=== PATIENT | female | born 1965 | race Caucasian/White ===

== ENCOUNTER 2017-05-02 23:24 | Emergency (ER) | payer SELFPAY ==
[~2017-05-02] VITALS: Ht 160 cm; Wt 54.4 kg
[2017-05-02] MEDS ORDERED: IV NORMAL SALINE 1000ML BAG 1,000 ML IV SCH (23:45)
--- NOTE | 2017-05-02 23:47 | PHYS DOC ---
Past Medical History Past Medical History: No Pertinent History Additional Past Medical Histor: pt denies Past Surgical History: Additional Past Surgical Histo: pt denies Smoking: Cigarettes Alcohol Use: Rarely Drug Use: None Adult General Chief Complaint Chief Complaint: DIZZY/LIGHT HEADED HPI HPI Patient is a 52 year old female who presents with vomiting, cough and dizziness. She is homeless and was eating tacos at 2230 PM. She states that she vomited "10 times." No blood in emesis. No diarrhea. She has a cough as well. She smokes tobacco. No chest pain. Review of Systems Review of Systems Constitutional: Denies fever or chills Eyes: Denies change in visual acuity, redness, or eye pain HENT: Denies nasal congestion or sore throat Respiratory: POS cough; no shortness of breath Cardiovascular: No chest pain GI: Denies abdominal pain, POS nausea, vomiting, No bloody stools or diarrhea 4 : Denies dysuria or hematuria Musculoskeletal: Denies back pain or joint pain Integument: Denies rash or skin lesions Neurologic: Denies headache, focal weakness or sensory changes Current Medications Current Medications Current Medications Medications (Trade) Dose Ordered Sig/[place] Start Time Stop Time Status Last Admin Dose Admin Ondansetron HCl (Zofran) 4 mg 1X ONCE 05/02/17 23:55 05/02/17 23:56 DC 05/03/17 01:58 4 MG Sodium Chloride 1,000 ml @ 1,000 mls/hr 1X ONCE 05/03/17 02:30 05/03/17 03:29 05/03/17 02:37 1,000 MLS/HR Allergies Allergies Allergies Coded Allergies Type Severity Reaction Last Updated Verified No Known Drug Allergies 05/02/17 No Physical Exam Physical Exam Constitutional: Well developed, well nourished, no acute distress, non-toxic appearance. HENT: Normocephalic, atraumatic, bilateral external ears normal, oropharynx moist, no oral exudates, nose normal. Eyes: PERRLA, EOMI, conjunctiva normal, no discharge. Neck: Normal range of motion, no tenderness, supple, no stridor. Cardiovascular:Heart rate regular rhythm, no murmur Lungs & Thorax: Bilateral breath sounds clear to auscultation; no rales. Abdomen: Bowel sounds normal, soft, no tenderness, no masses, no pulsatile masses. Skin: Warm, dry, no erythema, no rash. Back: No tenderness, no CVA tenderness. Extremities: No tenderness, no cyanosis, no clubbing, ROM intact, no edema. Neurologic: Alert and oriented X 3, normal motor function, normal sensory function, no focal deficits noted. Psychologic: Affect normal, judgement normal, mood normal. Current Patient Data Vital Signs Vital Signs Date Time Temp Pulse Resp B/P (MAP) Pulse Ox O2 Delivery O2 Flow Rate FiO2 05/03/17 02:00 92 19 114/58 (76) 05/02/17 23:27 98.1 96 Room Air 98.1 Lab Values Laboratory Tests Test 05/03/17 01:40 White Blood Count 11.1 x10^3/uL (4.0-11.0) H Red Blood Count 4.34 x10^6/uL (3.50-5.40) Hemoglobin 14.0 g/dL (12.0-15.5) Hematocrit 41.5 % (36.0-47.0) Mean Corpuscular Volume 96 fL (79-100) Mean Corpuscular Hemoglobin 32 pg (25-35) Mean Corpuscular Hemoglobin Concent 34 g/dL (31-37) Red Cell Distribution Width 13.7 % (11.5-14.5) Platelet Count 259 x10^3/uL (140-400) Neutrophils (%) (Auto) 81 % (31-73) H Lymphocytes (%) (Auto) 13 % (24-48) L Monocytes (%) (Auto) 5 % (0-9) Eosinophils (%) (Auto) 0 % (0-3) Basophils (%) (Auto) 1 % (0-3) Neutrophils # (Auto) 9.0 x10^3uL (1.8-7.7) H Lymphocytes # (Auto) 1.5 x10^3/uL (1.0-4.8) Monocytes # (Auto) 0.6 x10^3/uL (0.0-1.1) Eosinophils # (Auto) 0.0 x10^3/uL (0.0-0.7) Basophils # (Auto) 0.1 x10^3/uL (0.0-0.2) Prothrombin Time 14.6 SEC (11.7-14.0) H Prothrombin Time INR 1.2 (0.8-1.1) H D-Dimer (Cindy) < 0.27 ug/mlFEU Sodium Level 141 mmol/L (136-145) Potassium Level 4.5 mmol/L (3.5-5.1) Chloride Level 101 mmol/L (98-107) Carbon Dioxide Level 28 mmol/L (21-32) Anion Gap 12 (6-14) Blood Urea Nitrogen 22 mg/dL (7-20) H Creatinine 1.1 mg/dL (0.6-1.0) H Estimated GFR (Cockcroft-Gault) 51.8 Glucose Level 88 mg/dL (70-99) Calcium Level 9.8 mg/dL (8.5-10.1) Total Bilirubin 0.9 mg/dL (0.2-1.0) Direct Bilirubin 0.2 mg/dL (0.0-0.2) Aspartate Amino Transferase (AST) 15 U/L (15-37) Alanine Aminotransferase (ALT) 19 U/L (14-59) Alkaline Phosphatase 98 U/L (46-116) Creatine Kinase 64 U/L (26-192) Creatine Kinase MB (Mass) < 0.5 ng/mL (0.0-3.6) Creatine Kinase MB Relative Index 0.8 % (0-4) Troponin I Quantitative < 0.017 ng/mL (0.000-0.055) FZ-Bhu-S-Type Natriuretic Peptide 387 pg/mL (0-124) H Total Protein 7.4 g/dL (6.4-8.2) Albumin 4.4 g/dL (3.4-5.0) Lipase 103 U/L (73-393) Laboratory Tests 05/03/17 01:40 Laboratory Tests 05/03/17 01:40 EKG EKG EKG interpreted by myself at 2337 PM. Sinus tachycardia at a rate 100; non specific ST changes. Radiology/Procedures Radiology/Procedures Chest x-ray interpreted by myself at 0040 a.m. shows normal mediastinum, normal cardiac silhouette, flattened mohan with hyperinflated lung ambrose. No consolidation, no infiltrates. Course & Med Decision Making Course & Med Decision Making Evaluated patient upon arrival. IV NS. At 0220 am lab is returning (delay). Bun is elevated; second liter added. At 0230 am: D dimer is normal. Reviewed findings w patient. Will cover pulmonary infection. Stable for outpatient management. Rocephin IV and azithromax po here. Patient improved and vital signs are stable. I have spoken with the patient and/or caregivers. I have explained the patient' s condition, diagnosis and treatment plan based on the information available to me at this time. I have answered the patient's and/or caregiver's questions and addressed any concerns. The patient and/or caregivers have as good an understanding of the patient's diagnosis, condition and treatment plan as can be expected at this point. The patient's condition is stable and appropriate for discharge from the emergency department. The patient will pursue further outpatient evaluation with the primary care physician or other designated or consulting physician as outlined in the discharge instructions. The patient and/or caregivers are agreeable to this plan of care and follow-up instructions have been explained in detail. The patient and/or caregivers have received these instructions in written format and have expressed an understanding of the discharge instructions. The patient and/or caregivers are aware that any significant change in condition or worsening of symptoms should prompt an immediate return to this or the closest emergency department or a call to 911. Dragon Disclaimer Dragon Disclaimer This electronic medical record was generated, in whole or in part, using a voice recognition dictation system. Departure Departure Impression: Primary Impression: Bronchitis Additional Impression: Nausea & vomiting Disposition: 01 HOME, SELF-CARE Condition: GOOD Patient Instructions: Acute Bronchitis Additional Instructions: CALL THE DOCTORS PROVIDED FOR FOLLOW UP Scripts Azithromycin (AZITHROMYCIN TABLET) 250 Mg Tablet 250 MG PO DAILY for ANTI-BIOTIC for 4 Days, #4 TAB 0 Refills Prov: SHEEBA IZQUIERDO MD 05/03/17 Problem Qualifiers Additional Impression: Nausea & vomiting Vomiting type: unspecified Vomiting Intractability: non-intractable Qualified Codes: R11.2 - Nausea with vomiting, unspecified SHEEBA IZQUIERDO MD May 02, 2017 23:46
[2017-05-02] MEDS ORDERED: ONDANSETRON PF 4 MG/2 ML VIAL. IV ONE (23:55)
[2017-05-03 01:59] LABS: BASO # 0.1 x10^3/uL (0.0-0.2); BASO % 1 % (0-3); EOS % 0 % (0-3); HEMATOCRIT 41.5 % (36.0-47.0); LYMPH # 1.5 x10^3/uL (1.0-4.8); LYMPH % 13 % (24-48); MEAN CORPUSCULAR HEMOGLOBIN 32 pg (25-35); MEAN CORPUSCULAR HGB CONC 34 g/dL (31-37); MEAN CORPUSCULAR VOLUME 96 fL (79-100); MONO % 5 % (0-9); NEUT % 81 % (31-73); PLATELET COUNT 259 x10^3/uL (140-400); RED BLOOD COUNT 4.34 x10^6/uL (3.50-5.40); RED CELL DISTRIBUTION WIDTH 13.7 % (11.5-14.5); WHITE BLOOD COUNT 11.1 x10^3/uL (4.0-11.0)
[2017-05-03 02:13] LABS: INR 1.2 (0.8-1.1); PROTHROMBIN TIME PATIENT 14.6 SEC (11.7-14.0)
[2017-05-03 02:16] LABS: CALCIUM 9.8 mg/dL (8.5-10.1); CREATININE 1.1 mg/dL (0.6-1.0); GFR 51.8; POTASSIUM 4.5 mmol/L (3.5-5.1)
[2017-05-03 02:22] LABS: ALBUMIN 4.4 g/dL (3.4-5.0); DIRECT BILIRUBIN 0.2 mg/dL (0.0-0.2); TOTAL BILIRUBIN 0.9 mg/dL (0.2-1.0); TOTAL PROTEIN 7.4 g/dL (6.4-8.2)
[2017-05-03 02:30] LABS: CREATINE KINASE 64 U/L (26-192)
[2017-05-03] MEDS ORDERED: IV NORMAL SALINE 1000ML BAG 1,000 ML IV ONE (02:30)
[2017-05-03 02:37] LABS: CKMB MASS < 0.5 ng/mL (0.0-3.6)
[2017-05-03] MEDS ORDERED: AZIT250T6 PO (02:39)
[2017-05-03] MEDS ORDERED: AZITHROMYCIN 250 MG TABLET. PO ONE (03:00)
[2017-05-03 03:26] VITALS: BP 118/58
--- NOTE | 2017-05-03 06:10 | EKG ---
[facility] [address] [place] [address] Test Date: 2017-05-02 Test Time: 23:37:17 Pat Name: YANCY FUNEZ Department: Room: Gender: F Seconds Handler: : 1965 Requested By: SHEEBA IZQUIERDO Order Number: [id number] Reading MD: Hansel Samano Measurements Intervals [place] Rate: 100 P: 78 DC: 172 QRS: 80 QRSD: 80 T: 78 QT: 382 QTc: 496 Interpretive Statements SINUS RHYTHM BIATRIAL ENLARGEMENT R-S TRANSITION ZONE IN V LEADS DISPLACED TO THE LEFT PROLONGED QT Electronically Signed On 05-04-2017 11:19:41 CDT by Hansel Samano
--- NOTE | 2017-05-03 07:22 | RAD ---
Exam performed: One view chest. Indication: cough Date of Service: 05/03/2017 1:43 AM Comparison: None available. Single AP upright portable view chest findings: Cardiomediastinal silhouette is within limits of normal. No acute infiltrates, effusion or pneumothorax is detected. Both lungs are hyperinflated likely emphysema. There is probably a right paratracheal lymph node. The bony structures are normal. Impression: Emphysematous lungs. Probable right paratracheal node. Etiology of this is not clear. Evaluation with CT chest with contrast may be of additional benefit.
== END 2017-05-03 03:33 | disposition home or self-care (01) ==
LOC: ER 23:24
DX: R11.2 Nausea with vomiting, unspecified (principal); J40 Bronchitis, not specified as acute or chronic; R42 Dizziness and giddiness; F17.210 Nicotine dependence, cigarettes, uncomplicated
CPT/HCPCS: 36415; 71010; 80048; 80076; 82550; 82553; 83690; 83880; 84484; 85025; 85379; 85610; 93005; 96361; 96365; 96375; 99285; J0690; J2405; J7030; Q0144